=== PATIENT | female | born 1980 | race Caucasian/White ===

== ENCOUNTER 2020-10-05 22:17 | Emergency (ER) | payer SELFPAY ==
[~2020-10-05] VITALS: Ht 162.6 cm; Wt 72.7 kg
[2020-10-05 22:21] VITALS: Ht 162.6 cm; Wt 72.7 kg
[2020-10-05 23:54] LABS: BILIRUBIN NEGATIVE (NEGATIVE); HCG URINE NEGATIVE (NEGATIVE); KETONE NEGATIVE (NEGATIVE); NITRITE NEGATIVE (NEGATIVE); UROBILINOGEN NORMAL mg/dL (< 2)
[2020-10-05 23:55] LABS: BACTERIA MODERATE HPF (NONE SEEN); SQUAMOUS EPITHELIAL 0-5 HPF (0-4)
[2020-10-06] MEDS ORDERED: HYDROCODON-ACE1 EAC7 PO (00:12)
[2020-10-06] MEDS ORDERED: BACTRIM DS TAB1 EAC1 PO (00:12)
[2020-10-06 01:16] LABS: BASOPHILS 0.2 % (0-2); EOSINOPHILS 1.2 % (0-7); HEMATOCRIT 42.7 % (36.0-48.0); HEMOGLOBIN 14.2 g/dL (12-16); IMMATURE GRANULOCYTES 0.2 % (0-5); LYMPHOCYTE ABS# 1.85 10x3/uL (1.18-3.74); LYMPHOCYTES 17.9 % (15-50); MCH 31.2 pg (26.0-34.0); MCHC 33.3 g/dL (31.0-37.0); MCV 93.8 fL (80.0-100.0); MEAN PLATELET VOLUME 10.4 fL (7.4-10.4); NEUTROPHIL ABS# 7.83 10x3/uL (1.56-6.13); NEUTROPHILS 75.5 % (40-80); PLATELET COUNT 199 10x3/uL (130-400); RBC 4.55 10x6/uL (4.00-5.40); RDW 12.4 % (11.5-14.5); WBC 10.4 10x3/uL (4.8-10.8)
[2020-10-06 01:31] LABS: ANION GAP 12.2 mmol/L (8-16); CARBON DIOXIDE 26.6 mmol/L (21.0-32.0); POTASSIUM - SERUM 3.8 mmol/L (3.5-5.1)
[2020-10-06 01:37] LABS: ALBUMIN 3.4 g/dL (3.4-5.0); BILIRUBIN - TOTAL 0.59 mg/dL (0.2-1.3); PROTEIN - SERUM 7.1 g/dL (6.4-8.2)
[2020-10-06 01:46] VITALS: BP 100/66
== END 2020-10-06 01:48 | disposition home or self-care (01) ==
LOC: D.ER 22:17
PROVIDERS: Emergency Medicine
DX: N39.0 Urinary tract infection, site not specified (principal); T83.32XA Displacement of intrauterine contraceptive device, initial encounter; K42.9 Umbilical hernia without obstruction or gangrene